=== PATIENT | female | born 1940 | race Caucasian/White ===

== ENCOUNTER 2016-03-24 09:30 | Day surgery (SDC) | payer MEDICARE, BC ==
[2016-03-19 10:09] VITALS: BMI 40.7
[~2016-03-24 09:30] MED LIST: LACTATED RINGERS 1,000 ML IV SCH; LIDOCAINE 1% 20 ML VIAL (10MG/ML) FOR IV START INTRADERMA PRN
[2016-03-24 11:16] VITALS: TEMP 98.5
[2016-03-24] MEDS ORDERED: PROPOFOL 10 MG/ML 20 ML VIAL IV ONE (11:33)
--- NOTE | 2016-03-24 11:48 | P.PCN ---
Date of Procedure: 03/24/16 Procedure(s) Performed: BRIEF HISTORY: Patient is a 75-year-old pleasant white female, scheduled for an elective colonoscopy as a part of evaluation of prior history of colon polyps and family history of colon cancer. Her sister was diagnosed with colon cancer in her 60s. Patient's last colonoscopy was 5 years ago. PROCEDURE PERFORMED: Colonoscopy. PREOPERATIVE DIAGNOSIS:History of colon polyps and family history of colon cancer IV sedation per Anesthesia. PROCEDURE: After informed consent was obtained, the patient, was brought into the endoscopy unit. IV conscious sedation was administered by Anesthesia under continuous monitoring. Initially the Olympus CF-160 flexible video colonoscope was then inserted in the rectum, gradually advanced into the cecum without any difficulty. Careful examination was performed as the scope was gradually being withdrawn. Ileocecal valve and the appendiceal orifice were visualized and appeared normal. Prep was excellent. Mucosa of the cecum, ascending colon, transverse colon, descending colon, sigmoid colon, and rectum appeared normal. Scattered sigmoid diverticulosis seen. Retroflexion was performed in the rectum and no lesions were seen. The patient tolerated the procedure well. IMPRESSION: Normal-appearing colon from rectum to cecum with no evidence of colorectal neoplasia. Scattered sigmoidal diverticulosis. RECOMMENDATIONS: Findings of this examination were discussed with the patient as well as her family. She was advised to have a repeat screening colonoscopy in 5 years because of family history of colon cancer.
[2016-03-24 11:52] VITALS: BP 121/78; RESP 18
[2016-03-24 12:09] VITALS: PULSE 60
== END 2016-03-24 12:33 | disposition home or self-care (01) ==
LOC: ORWHC2ENDO 09:30
PROVIDERS: ATTEND Internal Medicine Gastroenterology
DX: Z12.11 Encounter for screening for malignant neoplasm of colon (principal); Z86.010 Personal history of colon polyps; Z80.0 Family history of malignant neoplasm of digestive organs; K57.30 Diverticulosis of large intestine without perforation or abscess without bleeding; I10 Essential (primary) hypertension; F41.9 Anxiety disorder, unspecified; Z79.01 Long term (current) use of anticoagulants; Z79.899 Other long term (current) drug therapy
CPT/HCPCS: J2704; G0105

== ENCOUNTER → 2016-11-15 | Outpatient (CLI) | payer MEDICARE, BC ==
--- NOTE | 2016-11-17 09:17 | MM ---
Reason for exam: screening (asymptomatic). Last mammogram was performed 3 years and 11 months ago. Physical Findings: Nurse did not find any significant physical abnormalities on exam. MG 3D Screening Mammo W/Cad Bilateral CC and MLO view(s) were taken. CV view(s) were taken of the right breast. Prior study comparison: December 08, 2012, mammogram. There are scattered fibroglandular densities. Finding: There are typically benign vascular calcifications in both breasts. There is no discrete abnormality. ASSESSMENT: Benign, BI-RAD 2 RECOMMENDATION: Routine screening mammogram of both breasts in 1 year.
== END | disposition home or self-care (01) ==
LOC: RADMAMWWP 10:31
PROVIDERS: ATTEND Internal Medicine
DX: Z12.31 Encounter for screening mammogram for malignant neoplasm of breast (principal)
CPT/HCPCS: 77063; G0202

== ENCOUNTER 2020-09-29 14:03 | Emergency (ER) | payer MEDICARE, BC ==
[2020-09-29] MEDS ORDERED: PANTOPRAZOLE 40 MG/10 ML VIAL IVP STA (14:51)
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
--- NOTE | 2020-09-29 15:43 | XR ---
EXAMINATION TYPE: XR chest 2V DATE OF EXAM: 09/29/2020 COMPARISON: 04/09/2015 TECHNIQUE: PA and lateral views submitted. HISTORY: Shortness of breath FINDINGS: A coarsened interstitium. Retrocardiac air-fluid level compatible with hiatal hernia. No pneumothorax . Heart size normal. Degenerative changes of the spine. IMPRESSION: 1. Correlate for bronchitis or mild interstitial pneumonitis. 2. Hiatal hernia.
[2020-09-29 16:18] VITALS: RESP 18
[2020-09-29 16:43] LABS: Albumin 4.1 g/dL (3.5-5.0); Calcium 8.9 mg/dL (8.4-10.2); Magnesium 2.1 mg/dL (1.6-2.3); Potassium 4.1 mmol/L (3.5-5.1); Total Bilirubin 0.2 mg/dL (0.2-1.3); Total Protein 6.5 g/dL (6.3-8.2)
[2020-09-29 17:33] LABS: Anisocytosis Slight; Basophils # (A) 0.1 k/uL (0-0.2); Basophils % (A) 1 %; Eosinophils # (A) 0.4 k/uL (0-0.7); Eosinophils % (A) 5 %; HCT 29.9 % (34.0-46.0); HGB 10.3 gm/dL (11.4-16.0); Hypochromasia Marked; Lymphocytes % (A) 14 %; MCH 27.2 pg (25.0-35.0); MCHC 34.3 g/dL (31.0-37.0); MCV 79.5 fL (80.0-100.0); Mean Platelet Volume 7.9; Microcytosis Slight; Monocytes # (A) 0.7 k/uL (0-1.0); Monocytes % (A) 10 %; Neutrophils # (A) 4.6 k/uL (1.3-7.7); Neutrophils % (A) 67 %; Platelet Count 270 k/uL (150-450); Poikilocytosis Slight; RBC 3.77 m/uL (3.80-5.40); RDW 17.9 % (11.5-15.5); WBC 6.9 k/uL (3.8-10.6)
[2020-09-29 18:00] LABS: Partial Thromboplastin Time 25.9 sec (22.0-30.0)
[2020-09-29 19:23] VITALS: BP 160/84; PULSE 70; TEMP 98.3
== END 2020-09-29 19:23 | disposition home or self-care (01) ==
LOC: EC 14:03
DX: R06.02 Shortness of breath (principal); I10 Essential (primary) hypertension; Z91.030 Bee allergy status; Z87.891 Personal history of nicotine dependence
CPT/HCPCS: 36415; 93005; 86900; 86901; 85379; 83880; 80053; 83735; 84484; 85025; 85730; 86850; 82272; 71046; 99285; 96374; C9113

== ENCOUNTER 2022-11-09 12:34 | Emergency (ER) | payer MEDICARE, BC ==
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
[2022-11-09] MEDS ORDERED: LORazepam 2 MG/ML INJ IV STA (14:31)
[2022-11-09 15:18] VITALS: BP 182/96; PULSE 54; RESP 17; TEMP 97.6
--- NOTE | 2022-11-09 15:23 | CT ---
EXAMINATION TYPE: CT facial bones wo con DATE OF EXAM: 11/09/2022 COMPARISON: None HISTORY: fall CT DLP: combined DLP 1309.4 mGycm CONTRAST: 0 mL of Isovue 300 The paranasal sinuses are examined in the axial plane at 2 mm thick sections. Reconstructed images i n the coronal plane were obtained. There is dental amalgam scatter artifact Mucosal thickening is within the inferior maxillary sinuses. Mucosal thickening is seen in ethmoid a ir cells more so on the left than right. The sphenoid sinuses are clear. The frontal sinuses are cl ear. The septum is evaluated. There is septal deviation to the right. Ostiomeatal units appear to be obstructed bilaterally. Soft tissue swelling is over the right frontal region. Underlying hematoma within the subcutaneous ti ssues is present measuring 1.2 x 2.2 cm. No underlying fracture is evident. Greater wings of the sphe noid are normal. Nasal bones appear intact. Zygomatic arches are intact. IMPRESSION: 1. No acute osseous abnormality post injury. 2. No acute fractures.
--- NOTE | 2022-11-09 15:26 | CT ---
EXAMINATION TYPE: CT brain mariangel wo con DATE OF EXAM: 11/09/2022 COMPARISON: None HISTORY: fall CT DLP: combined DLP 1309.4 mGycm, Automated exposure control for dose reduction was used. CONTRAST: Patient injected with 0 mL of Isovue 300. CT of the brain is performed utilizing 3 mm thick sections through the posterior fossa and 3 mm thick sections through the remaining calvarium. Study is performed within 24 hours of arrival to the hospital. No abnormal hyperdensity is present to suggest an acute intracranial hemorrhage. No mass lesion is evident. No acute infarcts are evident. There is mild periventricular white matter hypodensity, likely on the basis of chronic white matter ischemic changes. Ventricles and sulci are appropriate for the patient age. Mucosal thickening within ethmoid air cells. Maxillary spine appears intact. IMPRESSIONS: 1. Mild chronic appearing periventricular white matter ischemic changes. 2. No acute intracranial process, follow-up MRI can be performed as clinically indicated. CT cervical spine. COMPARISON: None CT of the cervical spine is performed in the axial plane at 2 mm thick sections. Reconstructed image s in the coronal, and sagittal plane are reviewed on the computer. No acute fractures are evident. There is straightening of the mid cervical spine. There is disc space narrowing C3-4 C4-5 C5-6. Mild grade 1 spondylolisthesis of C6 anteriorly on C7 m ay be present. Vertebral body heights are preserved. No spinal canal stenosis is evident. Uncovertebral joint hypertrophy C5-6 has moderate bilateral foraminal narrowing. Mild foraminal narro wing is present C4-5. Some endplate spurring is present at C4-5 without AP spinal canal stenosis IMPRESSION: 1. No acute osseous abnormality cervical spine. 2. Degenerative disc changes within the mid cervical spine. Some mild to moderate foraminal stenosis is present C4-5 and C5-6.
== END 2022-11-09 16:07 | disposition home or self-care (01) ==
LOC: EC 12:34
DX: S50.11XA Contusion of right forearm, initial encounter (principal); S00.12XA Contusion of left eyelid and periocular area, initial encounter; S00.11XA Contusion of right eyelid and periocular area, initial encounter; I10 Essential (primary) hypertension; K21.9 Gastro-esophageal reflux disease without esophagitis; M19.90 Unspecified osteoarthritis, unspecified site; F41.9 Anxiety disorder, unspecified; F32.A Depression, unspecified; G47.30 Sleep apnea, unspecified; Z79.899 Other long term (current) drug therapy; Z87.891 Personal history of nicotine dependence; W01.0XXA Fall on same level from slipping, tripping and stumbling without subsequent striking against object, initial encounter
CPT/HCPCS: 72125; 70486; 70450; 99284; 96374; J2060

== ENCOUNTER → 2022-11-09 | Outpatient (CLI) | payer MEDICARE, BC ==
--- NOTE | 2022-11-09 12:58 | XR ---
EXAMINATION TYPE: XR facial bones complete DATE OF EXAM: 11/09/2022 COMPARISON: NONE HISTORY: Pain TECHNIQUE: 3 views no FINDINGS: There is mucosal thickening involving the maxillary sinuses. Nasal septal deviation. No air -fluid levels. Osseous structures are intact.. Facet arthropathy cervical spine. IMPRESSION: 1. Bilateral chronic maxillary sinusitis. If there is high clinical suspicion for orbital fracture co rrelate with CT scan.
== END | disposition home or self-care (01) ==
LOC: RADXRMAIN 12:14
PROVIDERS: ATTEND Family Medicine
DX: J32.0 Chronic maxillary sinusitis (principal); S00.83XA Contusion of other part of head, initial encounter; X58.XXXA Exposure to other specified factors, initial encounter
CPT/HCPCS: 70150

== ENCOUNTER → 2023-09-09 | Outpatient (CLI) | payer MEDICARE, BC ==
--- NOTE | 2023-09-09 09:26 | MM ---
Reason for Exam: Clinical finding. Last mammogram was performed 6 year(s) and 10 month(s) ago. Indicated Problems: Lump or thickening of both sides for 1 Year(s). Patient History: Menarche at age 15. First Full-Term at age 22. Postmenopausal. Patient has history of breast feeding. Risk Values: Keiyr 5 year model risk: 1.4%. NCI Lifetime model risk: 2.1%. Prior Study Comparison: 12/08/2012 Screening Mammogram, Unknown. 11/15/2016 Bilateral Screening Mammogram, [facility]. Tissue Density: There are scattered areas of fibroglandular density. Findings: Analyzed By CAD. Benign bilateral vascular calcifications. No significant change from prior exams. Overall Assessment: Incomplete: need additional imaging evaluation, BI-RAD 0 Management: Diagnostic Breast Ultrasound of both breasts. Axilla the site of patient's fullness. Electronically signed and approved by: Sayra Robbins M.D. Radiologist
--- NOTE | 2023-09-09 12:36 | USB ---
Reason for Exam: Clinical finding. Patient History: Menarche at age 15. First Full-Term at age 22. Postmenopausal. Patient has history of breast feeding. Risk Values: Keiry 5 year model risk: 1.4%. NCI Lifetime model risk: 2.1%. Technique: Method: Targeted. Patient Position: Supine. Prior Study Comparison: 12/08/2012 Screening Mammogram, Unknown. 11/15/2016 Bilateral Screening Mammogram, [facility]. Findings: The axilla of both breasts was scanned. Targeted bilateral axillary ultrasound corresponding to the patient's area of fullness/thickening. At the right axilla, there is a cystic appearing area, possible fluid collection measuring 2.3 x 1.0 x 3.2 cm. This appears to be located deep to the musculature possibly against the chest wall. No other solid or cystic lesion. Unclear if this represents an abnormal lymphadenitis or ganglion cyst such as arising from the right shoulder. Further CT evaluation recommended. At the left axilla, some fatty tissue is present without solid or cystic lesion or axillary lymphadenopathy. Overall Assessment: Incomplete: need additional imaging evaluation, BI-RAD 0 Management: Further Imaging of the right breast. In order to determine possible etiology of the cystic appearing area measuring 3.2 cm at the right axilla that appears deep to the musculature. Recommend contrast enhanced CT of the chest to further evaluate. Extend scanning through the shoulders. Results were given to the patient verbally at the time of exam. Electronically signed and approved by: Sayra Robbins M.D. Radiologist
== END | disposition home or self-care (01) ==
LOC: RADMAMWWP 08:42
PROVIDERS: ATTEND Family Medicine
DX: N62 Hypertrophy of breast (principal); R92.323 Mammographic fibroglandular density, bilateral breasts; Z78.0 Asymptomatic menopausal state
CPT/HCPCS: 77066; 76642; G0279; 76882; 77062

== ENCOUNTER 2024-07-27 06:30 | Day surgery (SDC) | payer MEDICARE, BC ==
--- NOTE | 2024-07-26 13:37 | P.PN ---
Progress Note - Text Progress Note Date: 07/26/24 Stat labs obtained yesterday demonstrating moderate hyponatremia, sodium 130. Additionally, creatinine elevated 1.21 baseline 1.0. Medication reconciliation performed demonstrating patient takes a water pill and lisinopril. Patient confirms dizziness. I have asked her to stop her lisinopril today and her water pill today with repeat of her blood work tomorrow to prevent severe dehydration and hyponatremia.
[2024-07-27] MEDS ORDERED: MIDAZOLAM 2 MG/2 ML VIAL IV PRN (07:00)
[2024-07-27] MEDS: ONDANSETRON 4 MG/2 ML VIAL IVP PRN (07:05)
[2024-07-27] MEDS: ACETAMINOPHEN TAB 500 MG TAB PO PRN (07:06)
[2024-07-27] MEDS: LACTATED RINGERS 1,000 ML IV SCH (07:06)
[2024-07-27] MEDS: DEXAMETHASONE SOD PHOSPHATE 4 MG/ML 1 ML VIAL IVP STA (07:07)
[2024-07-27] MEDS: HEPARIN SODIUM,PORCINE 5,000 UNIT/ML 1 ML VIAL SQ PRN (07:18)
[2024-07-27] MEDS: IV FLUID CONTINUATION 1,000 ML IV ONE (07:19)
[2024-07-27 07:33] LABS: Basophils # (A) 0.04 10*3/uL (0.00-0.10); Basophils % (A) 0.8 %; Eosinophils # (A) 0.26 10*3/uL (0.04-0.35); HCT 35.5 % (37.2-46.3); HGB 12.2 g/dL (12.0-15.0); Lymphocytes # (A) 0.96 10*3/uL (0.90-5.00); Lymphocytes % (A) 18.4 %; MCH 32.5 pg (27.0-32.0); MCHC 34.4 g/dL (32.0-37.0); MCV 94.7 fL (80.0-97.0); Mean Platelet Volume 12.7 fL (9.5-12.2); Monocytes % (A) 11.5 %; Neutrophils # (A) 3.34 10*3/uL (1.80-7.70); Neutrophils % (A) 64.1 %; Platelet Count 134 10*3/uL (140-440); RBC 3.75 10*6/uL (4.10-5.20); RDW 13.3 % (11.5-14.5); WBC 5.21 10*3/uL (4.50-10.00)
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
[2024-07-27 07:39] LABS: Prothrombin Time 11.2 sec (10.0-12.5)
[2024-07-27] MEDS ORDERED: NEOSTIGMINE 1 MG/ML 10 ML VIAL ONE (07:41)
[2024-07-27] MEDS ORDERED: MIDAZOLAM 2 MG/2 ML VIAL ONE (07:41)
[2024-07-27] MEDS ORDERED: KETOROLAC 15 MG/ML 1 ML VIAL ONE (07:41)
[2024-07-27] MEDS ORDERED: ROCURONIUM 10 MG/ML (5 ML VIAL) IV ONE (07:41)
[2024-07-27] MEDS ORDERED: PHENYLEPHRINE 10 MG/ML VIAL ONE (07:41)
[2024-07-27] MEDS ORDERED: GLYCOPYRROLATE 0.2 MG/ML 2 ML VIAL ONE (07:41)
[2024-07-27] MEDS ORDERED: fentaNYL (PF) 50 MCG/ML 2 ML AMP ONE (07:41)
[2024-07-27] MEDS ORDERED: PROPOFOL 10 MG/ML 20 ML VIAL IV ONE (07:41)
[2024-07-27] MEDS: LIDOCAINE 1%-EPI 1:100,000 20 ML VIAL SQ ONE ×2 (07:45→08:17)
[2024-07-27 07:48] LABS: ALT 24 U/L (4-34); AST 39 U/L (14-36); African American GFR (CKD) 48 (>60 ml/min/1.73 sqM); Albumin 4.2 g/dL (3.5-5.0); Alkaline Phosphatase 66 U/L (38-126); Anion Gap 10 mmol/L; Blood Urea Nitrogen 84 mg/dL (7-17); Carbon Dioxide 22 mmol/L (22-30); Chloride 99 mmol/L (98-107); Glucose 109 mg/dL (74-99); Non-African American GFR(CKD) 41 (>60 ml/min/1.73 sqM); Sodium 131 mmol/L (137-145); Total Bilirubin 0.6 mg/dL (0.2-1.3); Total Protein 6.6 g/dL (6.3-8.2)
[2024-07-27] MEDS: ceFAZolin 2 GM in DEXTROSE 5% IN WATER 50 ML IVPB PRN (07:48)
[2024-07-27] MEDS: LACTATED RINGERS 1,000 ML IV ONE (09:27)
[2024-07-27] MEDS: HYDROmorphone 0.5 MG/0.5 ML SYRINGE IVP PRN (10:28)
[2024-07-27] MEDS ORDERED: NALOXONE 0.4 MG/ML 1 ML VIAL IV PRN (10:50)
[2024-07-27] MEDS ORDERED: ONDANSETRON 4 MG/2 ML VIAL IVP PRN (10:50)
[2024-07-27] MEDS: PANTOPRAZOLE 40 MG/10 ML VIAL IVP SCH (15:05)
[2024-07-27] MEDS: DEXAMETHASONE SOD PHOSPHATE 4 MG/ML 1 ML VIAL IVP SCH (15:05)
[2024-07-27] MEDS: SUCRALFATE 1 GM TAB PO SCH (15:06)
[2024-07-27] MEDS: HYDROmorphone 1 MG/ML 1 ML SYRINGE IVP PRN (15:16)
--- NOTE | 2024-07-27 16:23 | FL ---
EXAMINATION TYPE: FL esophagus cervic/pharynx DATE OF EXAM: 07/27/2024 2:47 PM COMPARISON: Plain films. CLINICAL INDICATION:Female, 83 years old with history of rule out leak/obstruction; TECHNIQUE: Limited single contrast UGI study is performed with Isovue-370 DAP: 1698 mGym2 FINDINGS: The stomach demonstrates a postsurgical morphology. No extravasation of contrast identifie d. No evidence of mass or ulcer disease. There is severe esophageal dysmotility noted with tertiary contractions. IMPRESSION: Postsurgical changes without evidence of contrast extravasation. Tertiary contractions with severe esophageal dysmotility. [facility], Workstation: [facility], 07/27/2024 4:21 PM
[2024-07-27] MEDS: ACETAMINOPHEN IV (For NPO) 1,000 MG in EMPTY BAG 1 BAG IVPB SCH (17:21)
[2024-07-27] MEDS: SODIUM CHLORIDE 0.9% 1,000 ML IV SCH (17:21)
[2024-07-27] MEDS: ceFAZolin 2 GM in DEXTROSE 5% IN WATER 50 ML IVPB SCH (18:19)
[2024-07-27] MEDS: SODIUM CHLORIDE 0.9% 500 ML 500 ML IV ONE (18:19)
[2024-07-27] MEDS: SIMETHICONE 40 MG/0.6 ML DROPS 2,000 MG/30 ML BOTTLE PO SCH (18:20)
--- NOTE | 2024-07-27 19:54 | P.OP ---
Date of Procedure: 07/27/24 Description of Procedure: SURGEON: NIMO PRITCHETT MD PREOPERATIVE DIAGNOSES: 1. Paraesophageal hiatal hernia, midline, with gastroesophageal reflux disease 2. Dysphagia 3. Esophageal dysmotility 4. Morbid obesity due to excess calories, BMI 37.5 5. Hypertensive heart disease with congestive heart failure 6. Hypertensive heart disease with stage III chronic renal disease 7. History of DVT thrombosis 8. Chronic anticoagulant use 9. Gout 10. Iron deficiency anemia 11. Sensorineural hearing loss 12. Obstructive sleep apnea 13. Generalized anxiety disorder 14. Depressive disorder 15. Osteoarthritis 16. Hypothyroidism POSTOPERATIVE DIAGNOSES: 1. Paraesophageal hiatal hernia, midline, with incarceration 2. Dysphagia 3. Esophageal dysmotility 4. Morbid obesity due to excess calories, BMI 37.5 5. Hypertensive heart disease with congestive heart failure 6. Hypertensive heart disease with stage III chronic renal disease 7. History of DVT thrombosis 8. Chronic anticoagulant use 9. Gout 10. Iron deficiency anemia 11. Sensorineural hearing loss 12. Obstructive sleep apnea 13. Generalized anxiety disorder 14. Depressive disorder 15. Osteoarthritis 16. Hypothyroidism 17. Gastroesophageal reflux disease 18. Acute gastric ulcers with recent bleeding 19. OPERATION: 1. Robotic-assisted da Vivian Xi laparoscopic reduction and repair of incarcerated paraesophageal hiatal hernia, 6 x 5 cm, with [place] Biopatch A 8 x 8 cm. 2. Intraoperative esophagogastroduodenoscopy 3. Esophageal dilation 56-[place]izen [place] bougie for esophageal dysphagia, pre-existing ANESTHESIA: General with local anesthetic. ESTIMATED BLOOD LOSS: 20 mL SPECIMENS REMOVED: None. COMPLICATIONS: None. FINDINGS: 1. Gastric antral ulcers x 3, recent bleed, 2 mm, identified upon upper endoscopy 2. Bougie 56-[place] placed to address pre-existing dysphagia, esophageal dysmotility 3. 6 x 5 cm paraesophageal incarcerated diaphragmatic hiatal hernia with moderate dissection into the mediastinum. 4. Squamocolumnar junction at 35 cm 5. [place] Biopatch A onlay mesh placed. 6. Reconstructed hiatus at 35 cm from the incisors 7. Incarcerated upper pole of the stomach: Gastric cardia over 6 cm reduced within the abdomen INDICATIONS: The patient is a 83-year-old female who presents with dysphagia, esophageal dysmotility and gastroesophageal reflux disease and a symptomatic diaphragmatic hiatal hernia. Preoperative workup including upper endoscopy demonstrated a Hill grade 4 lower esophageal valve. She completed barium swallow. Given the severity of her symptoms, particularly of her symptomatic diaphragmatic hiatal hernia, she had elected for surgical intervention. Benefits and risks including bleeding, infection, recurrence, dysphagia, injury to the lung, need for further surgery was described at length. Informed consent was obtained. DESCRIPTION: The patient was brought into the operating room and placed in supine position. Preoperatively she had received Heparin subcutaneously for DVT prophylaxis. After general induction, the abdomen was prepped and draped in standard sterile fashion. The patient had previously voided prior to coming to the operating room. Ioban draping was placed along the abdomen. A timeout protocol was confirmed with the surgical team, for which the patient's name, procedure to be performed including DVT prophylaxis with bilateral SCDs, and preoperative antibiotics were also confirmed. A robotic da Vivian Xi system was prepped and primed. At 10 cm from the xiphoid to just below the umbilicus, proposed port sites were marked with indelible marker along the left axillary line, left mid-clavicular line with each ports were marked 10 cm from each other. A 5 mm 0 degrees laparoscopic trocar entry was performed along the left upper quadrant. The abdomen was insufflated to 15 mmHg pressure she tolerated well. Diagnostic laparoscopy demonstrated no injury to bowel, viscera, or mesentery. The liver surface was unremarkable with sharp liver edge consistent with her high protein low-carb diet and compliance. No injury had occurred to the small bowel or viscera. Along the hiatus, a defect was found anteriorly. Next, trocars were positioned 13 cm distal to the xiphoid process. One 8 mm robotic port was placed along the right upper abdomen. An 8-mm port was were placed along the left lateral abdominal wall. The camera 8-mm port was maintained along the epigastrium via the hernia defect. Another 12 mm port was placed along the left upper abdominal wall after exchanging the 5 mm port. Please note that the ports were placed at least 20 cm away from the target anatomy. Care was taken to check that each robotic arm were safely away from collision with the bed or the patient. At the epigastrium, a median sized Alison liver retractor was placed under direct visualization with the [employer] placed over the right shoulder of the patient. The additional third robotic arm was placed along the left aspect of the patient. The patient was repositioned in reverse Trendelenburg position at 25-degrees after lowering the bed. The robot was docked above the left side of the patient. Using a grasper for arm 3, a grasper for arm 1, including vessel sealer for arm 2, the robotic system was docked and primed as described. Instruments were interchanged by the assistant hvac mechanic. I had sat at the console. The gastrohepatic ligament was cleaved using a vessel sealer. Next, the phrenoesophageal ligament was mobilized and the distal esophagus was mobilized circumferentially with care of to the bilateral vagi nerves. The left and right crura was identified. A midline large hiatal hernia and sac was found. Circumferentially, the hernia sac was excised and brought into the peritoneal cavity after deep dissection into the mediastinum with mediastinal lipoma reduced from the mediastinum into the abdomen. Care was taken to avoid any gastrotomy to the upper pole of the stomach. The gastric cardia was densely adherent to the left gildardo of the diaphragmatic hiatus with careful dissection performed. The measured defect was consistent with 6 cm axial length and 5 cm in width. The distal esophagus at least 1 cm was brought into the abdominal cavity. Once the hiatus and crura was dissected, 2-0 VLOC suture was placed initially with a [id number] suture to reapproximate the diaphragmatic hiatus posteriorly. To buttress the repair, a [place] Biopatch A was prepared along the back table as to reinforce the repair as an underlay. The mesh was placed along the crural repair and tagged using horizontal mattress sutures using 2-0 VLOC. I went to the head of the bed to perform intraoperative esophagogastroduodenoscopy. To address her pre-existing esophageal dysmotility, A 56-[place] bougie was carefully placed along the posterior oropharynx through the hiatus for 2 minutes and then removed. An Olympus gastroscope was passed through posterior oropharynx, where the GE junction was found distal to the diaphragmatic hiatus at 35 cm from the incisors. The intra-abdominal esophageal length obtained during the case was over 1 cm. The stomach was entered. Retroflexion of the scope confirmed a Hill grade 1 lower esophageal valve. Acute gastric ulcers, 2 mm in size x 3 was identified with recent bleed. The stomach had been desufflated. No evidence of leaks were found either of the mucosal defects of the esophagus or stomach. The hiatal closure was consistent with a 56 [place] bougie as a bougie was passed. This concluded the endoscopic portion of the case. The robot was undocked from the patient. I re-scrubbed into the case. All instruments and pneumoperitoneum were evacuated from the abdominal cavity. Incisions were reapproximated using 4-0 Monocryl in an interrupted subcuticular fashion. Liquid glue was applied to the skin. Local anesthetic was infiltrated in all wounds for postop analgesia. Multiple intra-abdominal films were obtained. At the end of the procedure, needle, sponge, and instrument count was verified correct by the wildlife technician. The patient had tolerated the procedure well and was taken to the postanesthesia unit in stable condition. Intraoperative films were reviewed with the patient's family who was pleased with the level of care.
[2024-07-27] MEDS: HEPARIN SODIUM,PORCINE 5,000 UNIT/ML 1 ML VIAL SQ SCH (22:52)
[2024-07-28] MEDS: LEVOTHYROXINE 25 MCG TAB PO SCH (05:17)
[2024-07-28 08:05] VITALS: BP 119/65; PULSE 62; RESP 16; TEMP 97.5
[2024-07-28] MEDS: METOPROLOL TARTRATE 50 MG TAB PO SCH (10:00)
[2024-07-28] MEDS: allopurinoL 300 MG TAB PO SCH (10:00)
--- NOTE | 2024-07-28 13:20 | P.DS ---
Providers Date of admission: 07/27/24 Expected date of discharge: 07/28/24 Attending physician: Yojana Candelario Primary care physician: Quan Bennett [facility] Course: POSTOPERATIVE DIAGNOSES: 1. Paraesophageal hiatal hernia, midline, with incarceration 2. Dysphagia 3. Esophageal dysmotility 4. Morbid obesity due to excess calories, BMI 37.5 5. Hypertensive heart disease with congestive heart failure 6. Hypertensive heart disease with stage III chronic renal disease 7. History of DVT thrombosis 8. Chronic anticoagulant use 9. Gout 10. Iron deficiency anemia 11. Sensorineural hearing loss 12. Obstructive sleep apnea 13. Generalized anxiety disorder 14. Depressive disorder 15. Osteoarthritis 16. Hypothyroidism 17. Gastroesophageal reflux disease 18. Acute gastric ulcers with recent bleeding COURSE: The patient is a 83-year-old female who presents with dysphagia, esophageal dysmotility and gastroesophageal reflux disease and a symptomatic diaphragmatic hiatal hernia. She underwent cardiac risk assessment prior to her procedure including a high- protein low carbohydrate diet with moderate improvement including decrease of body mass index with weight loss. Patient underwent robotic hiatal hernia repair. Esophagram was obtained demonstrating no leaks or obstruction. Hiatal hernia was resolved. Postoperatively, patient had done well. She reports she felt great. She was tolerating liquids. Patient was seen by the dietitian regarding her Yaakov diet. Close outpatient follow-up was described. Patient was asked to hold her Coumadin due to ulcers including high risk of bleeding. All questions were addressed. Patient was stable for discharge. Procedures: POSTOPERATIVE DIAGNOSES: OPERATION: 1. Robotic-assisted da Vivian Xi laparoscopic reduction and repair of incarcerated paraesophageal hiatal hernia, 6 x 5 cm, with [place] Biopatch A 8 x 8 cm. 2. Intraoperative esophagogastroduodenoscopy 3. Esophageal dilation 56-[place] bougie for esophageal dysphagia, pre-existing ANESTHESIA: General with local anesthetic. ESTIMATED BLOOD LOSS: 20 mL SPECIMENS REMOVED: None. COMPLICATIONS: None. FINDINGS: 1. Gastric antral ulcers x 3, recent bleed, 2 mm, identified upon upper endoscopy 2. Bougie 56-[place] placed to address pre-existing dysphagia, esophageal dysmotility 3. 6 x 5 cm paraesophageal incarcerated diaphragmatic hiatal hernia with moderate dissection into the mediastinum. 4. Squamocolumnar junction at 35 cm 5. [place] Biopatch A onlay mesh placed. 6. Reconstructed hiatus at 35 cm from the incisors 7. Incarcerated upper pole of the stomach: Gastric cardia over 6 cm reduced within the abdomen Patient Condition at Discharge: Good Plan - Discharge Summary Discharge Rx Participant: No New Discharge Prescriptions: New Simethicone 40 mg/0.6 ml Drops [Mylicon Drops] 80 mg PO QID #30 ml Sucralfate [Carafate] 1 gm PO AC-TID #60 tab Acetaminophen Tab [Tylenol Tab] 1,000 mg PO Q6HR PRN #30 tablet PRN Reason: Pain Continue Warfarin [Coumadin] 7.5 mg PO SUMOFR Warfarin [Coumadin] 5 mg PO WE Furosemide [Lasix] 20 mg PO HS rOPINIRole HCL [Requip] 0.5 mg PO HS Potassium Chloride [Potassium Chloride ER (K-Dur GEQ)] 10 meq PO QAM Metoprolol Tartrate [Lopressor] 50 mg PO QAM Levothyroxine Sodium 25 mcg PO QAM Ferrous Sulfate [Feosol] 325 mg PO QAM lisinopriL [Zestril] 5 mg PO QAM allopurinoL 300 mg PO QAM Hydrocortisone Cream [Hydrocortisone 2.5% Cream] 1 tub TOPICAL DAILY Cholecalciferol [Vitamin D3 (25 Mcg = 1000 Iu)] 50,000 unit PO FR Ketoconazole [Ketoconazole 2%] 1 applic TOPICAL WEEKLY PRN PRN Reason: skin irriatation Omeprazole [PriLOSEC] 40 mg PO QAM Hydrocodone(Unknown Dose) 1 dose PO DIRECTED PRN PRN Reason: Pain Discharge Medication List Warfarin [Coumadin] 5 mg PO TUWETH 11/13/15 [History] Warfarin [Coumadin] 7.5 mg PO SUMOFRSA 11/13/15 [History] Furosemide [Lasix] 20 mg PO HS 03/19/16 [History] Cholecalciferol [Vitamin D3 (25 Mcg = 1000 Iu)] 50,000 unit PO FR 04/10/24 [History] Hydrocortisone Cream [Hydrocortisone 2.5% Cream] 1 tub TOPICAL DAILY 04/10/24 [History] Ketoconazole [Ketoconazole 2%] 1 applic TOPICAL WEEKLY PRN 04/10/24 [History] Levothyroxine Sodium 25 mcg PO QAM 04/10/24 [History] Metoprolol Tartrate [Lopressor] 50 mg PO QAM 04/10/24 [History] Potassium Chloride [Potassium Chloride ER (K-Dur GEQ)] 10 meq PO QAM 04/10/24 [History] allopurinoL 300 mg PO QAM 04/10/24 [History] lisinopriL [Zestril] 5 mg PO QAM 04/10/24 [History] rOPINIRole HCL [Requip] 0.5 mg PO HS 04/10/24 [History] Ferrous Sulfate [Feosol] 325 mg PO QAM 07/25/24 [History] Hydrocodone(Unknown Dose) 1 dose PO DIRECTED PRN 07/25/24 [History] Omeprazole [PriLOSEC] 40 mg PO QAM 07/25/24 [History] Acetaminophen Tab [Tylenol Tab] 1,000 mg PO Q6HR PRN #30 tablet 07/27/24 [Rx] Simethicone 40 mg/0.6 ml Drops [Mylicon Drops] 80 mg PO QID #30 ml 07/27/24 [Rx] Sucralfate [Carafate] 1 gm PO AC-TID #60 tab 07/27/24 [Rx] Follow up Appointment(s)/Referral(s): Yojana Candelario MD [STAFF PHYSICIAN] - 07/31/24 6:30 pm ([facility], will call you) Patient Instructions/Handouts: Hiatal Hernia (DC) Activity/Diet/Wound Care/Special Instructions: RESUME BLOOD THINNER 07/31/2024 Liquid diet only for 2 weeks until August 10 No lifting over 4 pounds in 4 weeks, August 26June shower No soaking in bath tubs for 2 weeks, August 10 Please notify your surgeon if you develop nausea and vomiting including new onset of abdominal pain. Please ambulate at all times. Use Simethicone, Gas-X, Tylenol and ibuprofen or Aleve scheduled for the next 24-48 hours for best pain relief. Use ice along incisions for the today to prevent swelling. Please open, cut, crush pills larger than the size of a tic tack No carbonated beverages. No straws. Do not remove scopolamine patch for 3 days, if present Avoiding Gas Avoid drinking through a straw. Do not chew gum or tobacco. These actions cause you to swallow air, which produces excess gas in your stomach. Chew with your mouth closed. Avoid any foods that cause stomach gas and distention. These foods include corn, dried beans, peas, lentils, onions, broccoli, cauliflower and any food from the cabbage family. Avoid carbonated drinks, alcohol, citrus and tomato products. Carbonated drinks (sodas) are not allowed for the first six to eight weeks after surgery. After this time you can try them again in small amounts Clear Liquid Diet The first diet after surgery is the clear liquid diet. It includes the following liquids: Apple juice Cranberry juice Grape juice Chicken broth Beef broth Flavored gelatin (Jell-O) Decaf tea and coffee Caffeinated beverages are permitted based on tolerance [facility] [place] ice Full Liquid Diet The full liquid diet contains anything on the clear liquid diet, plus: Milk, soy, rice and almond (no chocolate) Cream of wheat, cream of rice, grits Strained creamed soups (no tomato or broccoli) Vanilla and strawberry-flavored ice cream Sherbet Blended, custard styled or whipped yogurt (plain or vanilla only) Vanilla and butterscotch pudding (no chocolate or coconut) Nutritional drinks including Ensure, Boost, [place] Instant Breakfast (no chocolate-flavored) Note: Dairy products, such as milk, ice cream and pudding, may cause diarrhea in some people just after surgery. You may need to avoid milk products. If so, substitute them with lactose-free beverages, such as soy, rice, Lactaid or almond milks. Discharge Disposition: HOME SELF-CARE
[2024-07-28 13:27] VITALS: BMI 37.4
== END 2024-07-28 15:57 | disposition home or self-care (01) ==
LOC: OR 06:30 → 4SSUR 14:02 → OR 07-28 15:57
PROVIDERS: ATTEND Surgery Plastic and Reconstructive Surgery
DX: K44.0 Diaphragmatic hernia with obstruction, without gangrene (principal); K21.9 Gastro-esophageal reflux disease without esophagitis; K22.4 Dyskinesia of esophagus; K29.01 Acute gastritis with bleeding; I13.0 Hypertensive heart and chronic kidney disease with heart failure and stage 1 through stage 4 chronic kidney disease, or unspecified chronic kidney disease; N18.30 Chronic kidney disease, stage 3 unspecified; I50.9 Heart failure, unspecified; I25.10 Atherosclerotic heart disease of native coronary artery without angina pectoris; G47.33 Obstructive sleep apnea (adult) (pediatric); E03.9 Hypothyroidism, unspecified; I73.9 Peripheral vascular disease, unspecified; E87.1 Hypo-osmolality and hyponatremia; D50.9 Iron deficiency anemia, unspecified; M19.90 Unspecified osteoarthritis, unspecified site; F41.1 Generalized anxiety disorder; F32.A Depression, unspecified; M10.9 Gout, unspecified; H90.5 Unspecified sensorineural hearing loss; E66.01 Morbid (severe) obesity due to excess calories; Z68.37 Body mass index [BMI] 37.0-37.9, adult; Z79.890 Hormone replacement therapy; Z79.52 Long term (current) use of systemic steroids; Z79.51 Long term (current) use of inhaled steroids; Z79.01 Long term (current) use of anticoagulants; Z79.899 Other long term (current) drug therapy; Z87.891 Personal history of nicotine dependence; Z85.828 Personal history of other malignant neoplasm of skin; Z86.718 Personal history of other venous thrombosis and embolism; Z91.018 Allergy to other foods
CPT/HCPCS: 43282; S2900; 74210; 80053; 85025; 85610